=== PATIENT | female | born 1985 | race Caucasian/White ===

== ENCOUNTER → 2017-05-07 | Outpatient (CLI) | payer OTHER ==
[~2017-05-07] MED LIST: PREN-96 PO
[2017-05-12 04:10] LABS: Rubella Antibodies, IgG 4.96 index (Immune >0.99)
== END ==
LOC: LAB 16:17
DX: Z01.84 Encounter for antibody response examination (principal)
CPT/HCPCS: 86735; 86762; 86765; 86787